=== PATIENT | male | born 1975 | race Two or more races ===

== ENCOUNTER 2019-10-23 20:42 | Emergency (ER) | payer OTHER ==
[~2019-10-23] VITALS: Ht 177.8 cm; Wt 95.3 kg
[2019-10-23] MEDS ORDERED: LORA-259 PO (21:09)
[2019-10-23] MEDS ORDERED: AMPH15TA2 PO (21:09)
[2019-10-23] MEDS ORDERED: [UNRECOGNIZED DRUG - REMARK] (21:09)
[2019-10-23] MEDS ORDERED: HYDROCODONE/APAP 5-325MG TABLET PO ONE (21:15)
[2019-10-23] MEDS ORDERED: HYDROCODONE/APAP 5-325MG TABLET ONE (21:16)
--- NOTE | 2019-10-23 21:17 | NUR ---
MAHENDRA COMPLETED, NORCO ADMINISTERED, PT D/C'D HOME WITH RX 3 AND ACI. PT TOOK All belongings , ambulated w/o diff. pt's family to drive pt home.
[2019-10-23 21:19] VITALS: BP 148/92
== END 2019-10-23 21:19 | disposition home or self-care (01) ==
LOC: ER 20:45
DX: K04.7 Periapical abscess without sinus (principal)
CPT/HCPCS: A4663

== ENCOUNTER 2020-02-14 20:23 | Emergency (ER) | payer OTHER ==
[~2020-02-14] VITALS: Ht 170.2 cm; Wt 99.8 kg
[~2020-02-14 20:23] MED LIST: AMPH15TA2 PO; LORA-259 PO; [UNRECOGNIZED DRUG - REMARK]
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
--- NOTE | 2020-02-14 20:57 | NUR ---
Dr. Abebe at bedside for MSE.
[2020-02-14] MEDS: LORAZEPAM 0.5 MG TABLET PO ONE (21:04)
[2020-02-14] MEDS ORDERED: LORAZEPAM 0.5 MG TABLET ONE (21:04)
--- NOTE | 2020-02-14 21:04 | NUR ---
Patient discharged to home in stable condition. Written and verbal after care instructions given. Patient verbalizes understanding of instructions. Stressed follow up or return to ER for worsening s/s. Pt ambulated out of the ER with steady gait. All belongings with pt.
[2020-02-14 21:05] VITALS: BP 140/98
== END 2020-02-14 21:05 | disposition home or self-care (01) ==
LOC: ER 20:26
DX: F41.9 Anxiety disorder, unspecified (principal); R03.0 Elevated blood-pressure reading, without diagnosis of hypertension; Z90.49 Acquired absence of other specified parts of digestive tract
CPT/HCPCS: A4663